=== PATIENT | female | born 1985 | race Caucasian/White ===

== ENCOUNTER 2016-06-06 10:52 | Inpatient (IN) | payer OTHER ==
[~2016-06-06] VITALS: Ht 165.1 cm; Wt 65.0 kg
[~2016-06-06 10:52] MED LIST: ACAI; CEPH500C3 PO; PREN0.01 PO; PYRI200T4 PO
[2016-06-06 10:55] VITALS: BP 120/59; PULSE 88; RESP 12; TEMP 98.4; O2SAT 97
--- NOTE | 2016-06-06 11:34 | PD ---
HPI Chief Complaint: Medical Clearance Time Seen by Provider: 11:34 Travel History International Travel<30 days: No Contact w/Intl Traveler<30days: No Traveled to known affect area: No History of Present Illness HPI 30 year-old female with history of previous CVA, left sided deficit, Crohn's disease, currently being treated for C. difficile on vancomycin, presents to the emergency department voluntarily from [facility] for psychiatric evaluation. Patient states she has been increasingly depressed and she "needs help." She states she is not currently suicidal nor does she have a suicidal plan. She went to [facility] last evening and spent the night there. She states that she did not receive any help but they sent her here today stating that she was "out of their scope." Her family is with her and is concerned about her labile moods and worsening depression. They state that some of the medication she takes causes a "change" in her. Patient states that she simply needs help. She was recently seen a [place] and told that her left shoulder is beginning to "sublux". She states they told her to get a sling but she has not yet done this. She denies any pain. No chest pain or tightness. Difficult to breathing. No fever or chills. Patient states otherwise she is well. PFSH Past Medical History Cancer: No Cardiovascular Problems: No Chemotherapy: No Cerebrovascular Accident: Yes Diabetes: No Endocrine: No Genitourinary: No Immune Disorder: No Musculoskeletal: No Neurologic: No Psychiatric: No Reproductive: No Respiratory: No Radiation Therapy: No Seizures: No Thyroid Disease: No Ulcer: No : 4 Para: 1 Past Surgical History Gynecologic Surgery: Yes (pregnancies) Social History Alcohol Use: Yes (RARE) Tobacco Use: Yes (5 CIGS A DAY) Substance Use: No Allergies-Medications (Allergen,Severity, Reaction): Coded Allergies: Morphine (Verified Allergy, Severe, 06/06/16) Reported Meds & Prescriptions Reported Meds & Active Scripts Active Reported Aspir-81 (Aspirin) 81 Mg Tabdr 81 Mg CHEW DAILY Bupropion HCl 100 Mg Tab 150 Mg PO HS Risperidone 0.5 Mg Tab 0.5 Mg PO HS Atorvastatin (Atorvastatin Calcium) 10 Mg Tab 10 Mg PO HS Dicyclomine (Dicyclomine HCl) 10 Mg Cap 10 Mg PO QID Budesonide DR (Budesonide) 3 Mg Capdr 3 Mg PO DAILY Review of Systems Except as stated in HPI: all other systems reviewed are Neg Physical Exam Narrative GENERAL: Well-nourished female patient, in no acute distress SKIN: Warm and dry. HEAD: Atraumatic. Normocephalic. EYES: No scleral icterus. No injection or drainage. ENT: No nasal bleeding or discharge. Mucous membranes pink and moist. NECK: Trachea midline. No JVD. CARDIOVASCULAR: Regular rate and rhythm. No murmur appreciated. RESPIRATORY: No accessory muscle use. Clear to auscultation. Breath sounds equal bilaterally. GASTROINTESTINAL: Abdomen soft, non-tender, nondistended. Hepatic and splenic margins not palpable. MUSCULOSKELETAL: No obvious deformities. No clubbing. No cyanosis. No edema. Left upper extremity flaccidity. Patient holds that a flexed angle with her right arm. NEUROLOGICAL: Awake and alert. No obvious cranial nerve deficits. Motor grossly within normal limits. Normal speech. Data Data Last Documented VS Vital Signs Date Time Temp Pulse Resp B/P Pulse Ox O2 Delivery O2 Flow Rate FiO2 06/06/16 19:30 76 18 121/79 99 Room Air 06/06/16 10:55 98.4 Orders Complete Blood Count With Diff (06/06/16 11:31) Basic Metabolic Panel (Bmp) (06/06/16 11:31) Urinalysis - C+S If Indicated (06/06/16 11:31) Drug Screen, Random Urine (06/06/16 11:31) Ed Urine Pregnancytest Poc (06/06/16 11:31) Alcohol (Ethanol) (06/06/16 11:31) Psych Screen (06/06/16 11:31) C Diff Toxin Pcr (06/06/16 11:31) Random Vancomycin (06/06/16 11:31) Splint Or Brace Apply/Monitor (06/06/16 11:33) Sling Cradle Arm (06/06/16 ) Labs Laboratory Tests Test 06/06/16 11:46 White Blood Count 5.8 TH/MM3 Red Blood Count 4.24 MIL/MM3 Hemoglobin 11.6 GM/DL Hematocrit 35.4 % Mean Corpuscular Volume 83.5 FL Mean Corpuscular Hemoglobin 27.3 PG Mean Corpuscular Hemoglobin 32.7 % Concent Red Cell Distribution Width 22.4 % Platelet Count 631 TH/MM3 Mean Platelet Volume 7.2 FL Neutrophils (%) (Auto) 55.3 % Lymphocytes (%) (Auto) 38.5 % Monocytes (%) (Auto) 4.0 % Eosinophils (%) (Auto) 1.1 % Basophils (%) (Auto) 1.1 % Neutrophils # (Auto) 3.2 TH/MM3 Lymphocytes # (Auto) 2.2 TH/MM3 Monocytes # (Auto) 0.2 TH/MM3 Eosinophils # (Auto) 0.1 TH/MM3 Basophils # (Auto) 0.1 TH/MM3 CBC Comment DIFF FINAL Differential Comment Urine Color YELLOW Urine Turbidity CLEAR Urine pH 7.0 Urine Specific [place] 1.019 Urine Protein NEG mg/dL Urine Glucose (UA) NEG mg/dL Urine Ketones NEG mg/dL Urine Occult Blood NEG Urine Nitrite NEG Urine Bilirubin NEG Urine Urobilinogen LESS THAN 2.0 MG/DL Urine Leukocyte Esterase TRACE Urine RBC 2 /hpf Urine WBC 1 /hpf Urine Squamous Epithelial 1 /hpf Cells Urine Mucus MOD /lpf Microscopic Urinalysis Comment CULT NOT INDICATED Sodium Level 140 MEQ/L Potassium Level 4.0 MEQ/L Chloride Level 104 MEQ/L Carbon Dioxide Level 26.2 MEQ/L Anion Gap 10 MEQ/L Blood Urea Nitrogen 15 MG/DL Creatinine 0.65 MG/DL Estimat Glomerular Filtration 108 ML/MIN Rate Random Glucose 89 MG/DL Calcium Level 8.8 MG/DL Random Vancomycin Level LESS THAN 0.8 COMMENT Urine Opiates Screen NEG Urine Barbiturates Screen NEG Urine Amphetamines Screen NEG Urine Benzodiazepines Screen NEG Urine Cocaine Screen POS Urine Cannabinoids Screen NEG Ethyl Alcohol Level LESS THAN 3 MG/DL MDM Medical Decision Making Medical Screen Exam Complete: Yes Emergency Medical Condition: Yes Medical Record Reviewed: Yes Differential Diagnosis Mood disorder versus personality disorder versus adjustment reaction disorder versus medication adverse effect Narrative Course 30 year-old female presents to the emergency department for evaluation. Patient appears without distress. Workup was initiated in triage. Once a medical bed becomes available, patient will be transferred and care assumed by that provider. Condition: Stable Yoselyn Dick Jun 06, 2016 11:34
[2016-06-06 12:13] LABS: AUTOMATED NEUTROPHIL # 3.2 TH/MM3 (1.8-7.7); BASOPHIL # 0.1 TH/MM3 (0-0.2); BASOPHIL % 1.1 % (0.0-2.0); EOSINOPHIL # 0.1 TH/MM3 (0-0.4); EOSINOPHIL % 1.1 % (0.0-4.0); HEMATOCRIT 35.4 % (35.0-46.0); HEMO FLAGS DIFF FINAL; LYMPH % 38.5 % (9.0-44.0); LYMPHOCYTE # 2.2 TH/MM3 (1.0-4.8); MEAN CELL VOLUME 83.5 FL (80.0-100.0); MEAN CORPUSCULAR HEMOGLOBIN 27.3 PG (27.0-34.0); MEAN CORPUSCULAR HGB CONC 32.7 % (32.0-36.0); NEUT % 55.3 % (16.0-70.0); PLATELET COUNT 631 TH/MM3 (150-450); RED BLOOD COUNT 4.24 MIL/MM3 (4.00-5.30); RED CELL DISTRIBUTION WIDTH 22.4 % (11.6-17.2); WHITE BLOOD COUNT 5.8 TH/MM3 (4.0-11.0)
[2016-06-06 12:20] LABS: BLOOD, URINE NEG (NEG); COMMENT (UR) CULT NOT INDICATED; CULTURE IF INDICATED CULT NOT INDICATED; GLUCOSE,URINE NEG (NEG); KETONE, URINE NEG (NEG); MUCUS URINE MOD /lpf (OCC); NITRITE,URINE NEG (NEG); SQUAMOUS EPITHELIAL CELL URINE 1 /hpf (0-5); URINE COLOR YELLOW (YELLW/STRAW)
[2016-06-06 12:21] LABS: AMPHETAMINE, URINE NEG (NEG); BARBITURATES, URINE NEG (NEG); COCAINE, URINE POS (NEG)
[2016-06-06 12:30] LABS: ANION GAP 10 MEQ/L (5-15)
[2016-06-06 12:32] LABS: BICARBONATE 26.2 MEQ/L (21.0-32.0); BLOOD UREA NITROGEN 15 MG/DL (7-18); CHLORIDE 104 MEQ/L (98-107); GLOMERULAR FILTRATION RATE 108 ML/MIN (>89); SODIUM (NA) 140 MEQ/L (136-145)
[2016-06-06] MEDS ORDERED: BUDE3CAP PO (12:41)
[2016-06-06] MEDS ORDERED: ASPI81TA81 CHEW (12:41)
[2016-06-06] MEDS ORDERED: DICY10CA12 PO (12:41)
[2016-06-06] MEDS ORDERED: RISP0.5T2 PO (12:41)
[2016-06-06] MEDS ORDERED: ATOR10TA15 PO (12:41)
[2016-06-06] MEDS ORDERED: BUPR100T4 PO (12:41)
--- NOTE | 2016-06-06 13:04 | PD ---
Physical Exam Narrative I, Dr. Marlow, have reviewed the advance practice practitioner's documentation and am in agreement, met with the patient face to face, made the diagnosis, and the medical decision making was done by me. *My assessment and Findings: Depression and suicidal ideation Pt sent here from [facility]. 30yo F with PMH of CVA with left sided weakness here with suicidal thoughts. Pt denies any medical complaints. States she is depressed and wants to hurt herself. Labs reviewed, no leukocytosis. Elevated platelet count. BMP unremarkable. Urine drug screen: Positive cocaine. UA showed trace leukocyte. Culture not indicated. Pt has no abdominal pain or urinary complaints. Pt is currently being treated for cdiff with oral vanco and flagyl. VS stable. Pt medically clear for psych evaluation. Data Data Last Documented VS Vital Signs Date Time Temp Pulse Resp B/P Pulse Ox O2 Delivery O2 Flow Rate FiO2 06/06/16 12:28 78 18 06/06/16 10:55 98.4 120/59 97 Room Air Orders Complete Blood Count With Diff (06/06/16 11:31) Basic Metabolic Panel (Bmp) (06/06/16 11:31) Urinalysis - C+S If Indicated (06/06/16 11:31) Drug Screen, Random Urine (06/06/16 11:31) Ed Urine Pregnancytest Poc (06/06/16 11:31) Alcohol (Ethanol) (06/06/16 11:31) Psych Screen (06/06/16 11:31) C Diff Toxin Pcr (06/06/16 11:31) Random Vancomycin (06/06/16 11:31) Splint Or Brace Apply/Monitor (06/06/16 11:33) Sling Cradle Arm (06/06/16 ) Labs Laboratory Tests Test 06/06/16 11:46 White Blood Count 5.8 TH/MM3 Red Blood Count 4.24 MIL/MM3 Hemoglobin 11.6 GM/DL Hematocrit 35.4 % Mean Corpuscular Volume 83.5 FL Mean Corpuscular Hemoglobin 27.3 PG Mean Corpuscular Hemoglobin 32.7 % Concent Red Cell Distribution Width 22.4 % Platelet Count 631 TH/MM3 Mean Platelet Volume 7.2 FL Neutrophils (%) (Auto) 55.3 % Lymphocytes (%) (Auto) 38.5 % Monocytes (%) (Auto) 4.0 % Eosinophils (%) (Auto) 1.1 % Basophils (%) (Auto) 1.1 % Neutrophils # (Auto) 3.2 TH/MM3 Lymphocytes # (Auto) 2.2 TH/MM3 Monocytes # (Auto) 0.2 TH/MM3 Eosinophils # (Auto) 0.1 TH/MM3 Basophils # (Auto) 0.1 TH/MM3 CBC Comment DIFF FINAL Differential Comment Urine Color YELLOW Urine Turbidity CLEAR Urine pH 7.0 Urine Specific [place] 1.019 Urine Protein NEG mg/dL Urine Glucose (UA) NEG mg/dL Urine Ketones NEG mg/dL Urine Occult Blood NEG Urine Nitrite NEG Urine Bilirubin NEG Urine Urobilinogen LESS THAN 2.0 MG/DL Urine Leukocyte Esterase TRACE Urine RBC 2 /hpf Urine WBC 1 /hpf Urine Squamous Epithelial 1 /hpf Cells Urine Mucus MOD /lpf Microscopic Urinalysis Comment CULT NOT INDICATED Sodium Level 140 MEQ/L Potassium Level 4.0 MEQ/L Chloride Level 104 MEQ/L Carbon Dioxide Level 26.2 MEQ/L Anion Gap 10 MEQ/L Blood Urea Nitrogen 15 MG/DL Creatinine 0.65 MG/DL Estimat Glomerular Filtration 108 ML/MIN Rate Random Glucose 89 MG/DL Calcium Level 8.8 MG/DL Random Vancomycin Level LESS THAN 0.8 COMMENT Urine Opiates Screen NEG Urine Barbiturates Screen NEG Urine Amphetamines Screen NEG Urine Benzodiazepines Screen NEG Urine Cocaine Screen POS Urine Cannabinoids Screen NEG Ethyl Alcohol Level LESS THAN 3 MG/DL MDM Supervised Visit with LETTY: Yes Condition: Stable MarlowMelvina segura Jun 06, 2016 13:04
[2016-06-06 15:30] VITALS: BP 119/73; PULSE 80; RESP 18; O2SAT 99
[2016-06-06 19:30] VITALS: BP 121/79; PULSE 76; RESP 18; O2SAT 99
[2016-06-06 20:56] VITALS: BP 120/68; PULSE 74; RESP 18; O2SAT 100
[2016-06-06] MEDS ORDERED: diphenhydrAMINE HCL 50 MG/ML VIAL - HS PRN IM (21:00)
[2016-06-06] MEDS ORDERED: MAGNESIUM HYDROXIDE SUSP 30 ML CUP PO PRN (21:00)
[2016-06-06] MEDS ORDERED: ACETAMINOPHEN 325 MG TAB PO PRN (21:00)
[2016-06-06] MEDS: REMOVE OLD NICOTINE PATCH T-DERMAL SCH (21:00)
[2016-06-06] MEDS ORDERED: risperiDONE 0.5 MG TAB PO SCH (21:00)
[2016-06-06] MEDS ORDERED: ALUMINUM/MAGNESIUM/SIMETH 30 ML CUP PO PRN (21:00)
[2016-06-06] MEDS: DICYCLOMINE HCL 10 MG CAP PO SCH (21:36)
[2016-06-06] MEDS: ATORVASTATIN 10 MG TAB PO SCH (21:36)
[2016-06-06 22:15] VITALS: BP 112/67; PULSE 85; RESP 18; TEMP 98.1; O2SAT 96
[2016-06-06] MEDS: diphenhydrAMINE HCL 50 MG CAP - HS PRN PO (23:01)
[2016-06-06] MEDS: hydrOXYzine HCL 50 MG TAB PO PRN (23:01)
[2016-06-07 05:43] VITALS: BP 95/52; PULSE 61; RESP 16; TEMP 97.7; O2SAT 97
[2016-06-07] MEDS: NICOTINE 21 MG/24 HR PATCH T-DERMAL SCH (09:00)
[2016-06-07] MEDS ORDERED: BUDESONIDE 3 MG PO SCH (09:00)
[2016-06-07] MEDS: ASPIRIN 81 MG CHEW TAB PO SCH (09:03)
[2016-06-07] MEDS: DICYCLOMINE HCL 10 MG CAP PO SCH ×4 (09:03→22:14)
[2016-06-07 09:14] LABS: ANION GAP 7 MEQ/L (5-15); BICARBONATE 28.1 MEQ/L (21.0-32.0); BLOOD UREA NITROGEN 13 MG/DL (7-18); CHLORIDE 105 MEQ/L (98-107); GLOMERULAR FILTRATION RATE 93 ML/MIN (>89); HDL CHOLESTEROL 54.4 MG/DL (40.0-60.0); LDL CHOLESTEROL 92 MG/DL (0-99); POTASSIUM 3.8 MEQ/L (3.5-5.1); SODIUM (NA) 140 MEQ/L (136-145)
[2016-06-07 12:27] LABS: C. DIFF EPI 027 PRESUMPTIVE NEGATIVE (NEGATIVE); C. DIFF TOXIN PCR NEGATIVE (NEGATIVE)
[2016-06-07 12:33] LABS: TRANSFERRIN IRON PROFILE 210 MG/DL (200-360)
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
[2016-06-07] MEDS ORDERED: [UNRECOGNIZED DRUG - CODE] PO (13:50)
--- NOTE | 2016-06-07 15:17 | PD.CONS ---
HPI Service [facility] Consult Requested By Psychiatric services Reason for Consult C. difficile on oral vancomycin, iron infusions, history of CVA with left-sided deficit and Crohn's disease. Primary Care Physician Antonio Colon M.D. Diagnoses: History of Present Illness This is a 30-year-old female patient with past medical history which includes Crohn's disease, CVA with left-sided deficit December 2015, iron deficiency anemia , currently on oral vancomycin for C. difficile. Patient reports she has had increasing sadness since her stroke and had thoughts of suicide and therefore her brought her to [facility]. Patient reports that [facility] Center to the hospital as she was, "out of their scope." Talking with patient she denies specific medical complaint reports she just, "needs help." Patient is currently on oral vancomycin for C. difficile she started two-week treatment course on 05/31/2016. Patient also completed Flagyl by mouth from 2016 until 05/26/2016. Patient denies diarrhea or watery stool at this time reports she has approximately 3 bowel movements a day which are soft but formed. Patient denies chest pain shortness of breath nausea vomiting fevers chills cough congestion. Patient does report since her stroke she has had iron deficiency anemia and has been getting iron infusions every week from oncology instituted in [place]. 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 difficile Past Surgical History Denies prior surgeries Reported Medications First-Vancomycin 25 Liq (Vancomycin HCl) 25 Mg/Ml Candy 5 Ml PO DAILY 14 Days starting on 05/31 take 5ml bid for one week then, take 5ml QD for one week. Aspir-81 (Aspirin) 81 Mg Tabdr 81 Mg CHEW DAILY Bupropion HCl 100 Mg Tab 150 Mg PO HS Risperidone 0.5 Mg Tab 0.5 Mg PO HS Atorvastatin (Atorvastatin Calcium) 10 Mg Tab 10 Mg PO HS Dicyclomine (Dicyclomine HCl) 10 Mg Cap 10 Mg PO QID Budesonide DR (Budesonide) 3 Mg Capdr 3 Mg PO DAILY Active Ordered Medications Current Medications Medications (Trade) Dose Ordered Sig/Nohemy Route Start Time Stop Time Status Last Admin (Atarax) 50 mg Q6H PRN PO 06/06/16 21:00 06/06/16 23:01 (Benadryl) 50 mg HS PRN PO 06/06/16 21:00 06/06/16 23:01 (Benadryl Inj) 50 mg HS PRN IM 06/06/16 21:00 (Tylenol) 650 mg Q4H PRN PO 06/06/16 21:00 (Milk Of Magnesia Liq) 30 ml DAILY PRN PO 06/06/16 21:00 (Mag-Al Plus Susp Liq) 30 ml Q6H PRN PO 06/06/16 21:00 (Habitrol 21 Mg Patch.24 Hr) 1 patch DAILY T-DERMAL 06/07/16 09:00 Miscellaneous Information 1 HS T-DERMAL 06/06/16 21:00 (Bentyl) 10 mg QID PO 06/06/16 21:00 06/07/16 13:24 (Lipitor) 10 mg HS PO 06/06/16 21:00 06/06/16 21:36 Patient Own Medication PT OWN MED: [facility]... DAILY PO 06/07/16 09:00 (Aspirin Chew) 81 mg DAILY PO 06/07/16 09:00 06/07/16 09:03 (Wellbutrin) 100 mg Q12HR PO 06/07/16 14:00 (Abilify) 5 mg DAILY PO 06/07/16 14:00 Family History Family medical history includes diabetes Social History Patient reports she rarely drinks alcohol Reports smoking approximately 5 cigarettes per day Urine tox screen positive for cocaine patient reports she had a relapse 3 days ago Physical Exam Vital Signs Vital Signs Date Time Temp Pulse Resp B/P Pulse Ox O2 Delivery O2 Flow Rate FiO2 06/07/16 05:43 97.7 61 16 95/52 97 06/06/16 22:15 98.1 85 18 112/67 96 06/06/16 20:56 74 18 120/68 100 Room Air 06/06/16 19:30 76 18 121/79 99 Room Air 06/06/16 15:30 80 18 119/73 99 Room Air Physical Exam GENERAL: This is a well-nourished, well-developed patient, in no apparent distress. SKIN: No rashes, ecchymoses or lesions. Cool and dry. HEAD: Atraumatic. Normocephalic. No temporal or scalp tenderness. EYES: Extraocular motions intact. No scleral icterus. No injection or drainage. CARDIOVASCULAR: Regular rate and rhythm without murmurs, gallops, or rubs. RESPIRATORY: Clear to auscultation. Breath sounds equal bilaterally. No wheezes , rales, or rhonchi. GASTROINTESTINAL: Abdomen soft, non-tender, nondistended. No guarding. Normoactive bowel sounds 4 MUSCULOSKELETAL: Extremities without clubbing, cyanosis, or edema. No joint tenderness, effusion, or edema noted. No calf tenderness. Negative Homans sign bilaterally. Flaccid left upper extremity. Left lower extremity 4 out of 5. Right lower extremity 5 out of 5 NEUROLOGICAL: Awake and alert. Flaccid left upper extremity. Motor and sensory grossly within normal limits. Portable 5 left lower extremity 5 out of 5 right lower extremity. Normal speech. Laboratory Laboratory Tests Test 06/07/16 06/07/16 07:58 08:47 Sodium Level 140 Potassium Level 3.8 Chloride Level 105 Carbon Dioxide Level 28.1 Anion Gap 7 Blood Urea Nitrogen 13 Creatinine 0.74 Estimat Glomerular Filtration 93 Rate Random Glucose 91 Calcium Level 8.6 Iron Level 28 Total Iron Binding Capacity 294 Percent Iron Saturation 9.5 Triglycerides Level 89 Cholesterol Level 164 LDL Cholesterol 92 HDL Cholesterol 54.4 Cholesterol/HDL Ratio 3.01 Stool C. difficile Toxin (PCR) NEGATIVE Stl C. 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 difficile. Patient reports she has had increasing sadness since her stroke and had thoughts of suicide and therefore her brought her to [facility]. Patient reports that [facility] Center to the hospital as she was, "out of their scope." Patient is currently on oral vancomycin for C. difficile she started two-week treatment course on 05/31/2016. Patient also completed Flagyl by mouth from 05/19/2016 until 05/26/2016. Patient denies diarrhea or watery stool at this time reports she has approximately 3 bowel movements a day which are soft but formed. C. difficile colitis-complete 14 day course with one additional week of oral vancomycin Retest stool for C. difficile negative Crohn's disease continue dicyclomine 10 mg 4 times a day Iron deficiency anemia hemoglobin 11.6 Iron panel reviewed iron 28 total iron binding capacity to 95% saturation 9.5 Start iron supplementation by mouth Request records from oncology [facility] in [place] History of CVA with left-sided deficit Continue aspirin and statin, LDL 92 DVT prophylaxis with SCDs Consult physical and occupational therapy Discussed plan of care with patient and RN Written by Tess Brown, acting as scribe for Dr. Hathaway on 06/07/16 at 12 :17. The documentation accurately reflects the work performed [id number] by me on at 12:17. Tess Brown Jun 07, 2016 15:17 Abisai Hathaway DO Jun 07, 2016 19:11
[2016-06-07 16:24] LABS: HEMOGLOBIN A1a 1.1 %; HEMOGLOBIN A1b 1.6 %; HEMOGLOBIN Ao 86.1 %; HEMOGLOBIN P3 5.2 %
[2016-06-07] MEDS: ARIPiprazole 5 MG TAB PO SCH (17:22)
[2016-06-07] MEDS: buPROPion HCL 100 MG TAB PO SCH ×2 (17:22→22:14)
[2016-06-07] MEDS: VANCOMYCIN 500 MG VIAL (FOR ORAL USE ONLY) PO SCH ×2 (17:22→22:15)
[2016-06-07 19:25] VITALS: BP 108/63; PULSE 89; RESP 16; TEMP 98.5; O2SAT 99
[2016-06-07] MEDS: REMOVE OLD NICOTINE PATCH T-DERMAL SCH (21:00)
[2016-06-07] MEDS: ATORVASTATIN 10 MG TAB PO SCH (22:14)
[2016-06-07] MEDS: FERROUS SULFATE 325 MG (65 MG ELEMENTAL IRON) TAB PO SCH (22:14)
[2016-06-07] MEDS: diphenhydrAMINE HCL 50 MG CAP - HS PRN PO (22:24)
[2016-06-07] MEDS: hydrOXYzine HCL 50 MG TAB PO PRN (22:24)
[2016-06-08 06:17] VITALS: BP 102/58; PULSE 85; RESP 16; TEMP 98.1; O2SAT 96
[2016-06-08] MEDS: NICOTINE 21 MG/24 HR PATCH T-DERMAL SCH (09:00)
[2016-06-08] MEDS: ASPIRIN 81 MG CHEW TAB PO SCH (09:04)
[2016-06-08] MEDS: buPROPion HCL 100 MG TAB PO SCH ×2 (09:04→20:15)
[2016-06-08] MEDS: DICYCLOMINE HCL 10 MG CAP PO SCH ×4 (09:04→20:15)
[2016-06-08] MEDS: ARIPiprazole 5 MG TAB PO SCH (09:04)
[2016-06-08] MEDS: FERROUS SULFATE 325 MG (65 MG ELEMENTAL IRON) TAB PO SCH ×2 (09:04→20:15)
[2016-06-08] MEDS: VANCOMYCIN 500 MG VIAL (FOR ORAL USE ONLY) PO SCH (09:05)
--- NOTE | 2016-06-08 13:44 | HHI.PYPN ---
Subjective Remarks Patient was seen today for psychiatric evaluation, patient is states that she feels much better today, her mood is significantly improved, /10 today, compared with yesterday 07/21. Patient denies suicidal or homicidal ideation, she denies visual and auditory hallucinations. Patient expressed an insightful motivation to continue her psychiatric care as an outpatient and being compliant with follow-ups and psychotropics. Review of Systems Other No significant changes since 06/07/2016 Objective Alert: Yes [place]: Person, Place, Date, Situation Mood: Calm Affect: Euthymic Memory Intact: Immediate, Recent, Remote Hallucinations: Other (he denies) Delusions: No Delusion Type: Other (none elicited) Suicidal: Ideation (he denies) Homicidal: Ideation (he denies) Insight/Judgement Good Vitals/IOs Vital Signs Date Time Temp Pulse Resp B/P Pulse Ox O2 Delivery O2 Flow Rate FiO2 06/08/16 06:17 98.1 85 16 102/58 96 06/06/16 20:56 Room Air Intake and Output 06/07/16 06/07/16 06/08/16 08:00 16:00 00:00 Intake Total 240 ml 360 ml 600 ml Balance 240 ml 360 ml 600 ml Assessment & Plan Problem List: (1) Major depressive disorder, recurrent severe without psychotic features Assessment & Plan: Today patient seems to be more communicative, she reports improving her mood, she denies suicidal was ideation, she denies visual and auditory hallucinations. At this point patient can continue her psychiatric care as an outpatient. No changes in psychotropics. pack worker intervention to restart to coordinate a safe discharge plan for tomorrow morning. ICD Code: F33.2 Assessment & Plan Estimated LOS: days Justification for Cont. Inpt. To coordinate safe discharge plan Yuan Galdamez MD Jun 08, 2016 13:44
[2016-06-08] MEDS ORDERED: BUPR100T4 PO (13:47)
[2016-06-08] MEDS ORDERED: ARIP1TAB11 PO (13:47)
[2016-06-08] MEDS ORDERED: VANC500I3 PO (13:47)
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
--- NOTE | 2016-06-08 14:07 | HHI.PR ---
Subjective Remarks Follow-up C. difficile, iron deficiency anemia, history of CVA with left upper extremity affected, Crohn's disease. Patient seen today resting in bed in no acute distress. Patient offers no medical complaints denies chest pain shortness of breath nausea vomiting diarrhea constipation fevers or chills. Patient does report she has between 2- 3 soft formed bowel movements daily denies watery diarrhea Objective Vitals Vital Signs Date Time Temp Pulse Resp B/P Pulse Ox O2 Delivery O2 Flow Rate FiO2 06/08/16 06:17 98.1 85 16 102/58 96 06/07/16 19:25 98.5 89 16 108/63 99 I/O 06/07/16 06/07/16 06/07/16 06/08/16 06/08/16 06/08/16 07:00 15:00 23:00 07:00 15:00 23:00 Intake Total 480 ml 360 ml 360 ml 360 ml 360 ml Balance 480 ml 360 ml 360 ml 360 ml 360 ml Intake Oral 480 ml 360 ml 360 ml 120 ml 360 ml Other 240 ml # Voids 6 Result Diagram: 06/06/16 1146 06/07/16 0758 Objective Remarks GENERAL: This is a well-nourished, well-developed patient, in no apparent distress. SKIN: No rashes, ecchymoses or lesions. Cool and dry. HEAD: Atraumatic. Normocephalic. No temporal or scalp tenderness. EYES: Extraocular motions intact. No scleral icterus. No injection or drainage. CARDIOVASCULAR: Regular rate and rhythm without murmurs, gallops, or rubs. RESPIRATORY: Clear to auscultation. Breath sounds equal bilaterally. No wheezes , rales, or rhonchi. GASTROINTESTINAL: Abdomen soft, non-tender, nondistended. No guarding. Normoactive bowel sounds 4 MUSCULOSKELETAL: Extremities without clubbing, cyanosis, or edema. No joint tenderness, effusion, or edema noted. No calf tenderness. Negative Homans sign bilaterally. Flaccid left upper extremity. Left lower extremity 4 out of 5. Right lower extremity 5 out of 5 NEUROLOGICAL: Awake and alert. Flaccid left upper extremity. Motor and sensory grossly within normal limits. 5 left lower extremity 5 out of 5 right lower extremity. Normal speech. A/P Assessment and Plan This is a 30-year-old female patient with past medical history which includes Crohn's disease, CVA with left-sided deficit December 2015, iron deficiency anemia , currently on oral vancomycin for C. difficile. Patient reports she has had increasing sadness since her stroke and had thoughts of suicide and therefore her brought her to [facility]. Patient reports that [facility] to the hospital as she was, "out of their scope." Patient is currently on oral vancomycin for C. difficile she started two-week treatment course on 05/31/2016. Patient also completed Flagyl by mouth from 05/19/2016 until 05/26/2016. Patient denies diarrhea or watery stool at this time reports she has approximately 3 bowel movements a day which are soft but formed. C. difficile colitis-patient is currently on vancomycin oral taper has 7 days left of 125 mg oral vancomycin daily recommend to complete course Retest stool for C. difficile negative Crohn's disease continue dicyclomine 10 mg 4 times a day Iron deficiency anemia hemoglobin 11.6 Iron panel reviewed iron 28 total iron binding capacity to 95% saturation 9.5 Start ferrous sulfate 325 mg twice a day Request records from [facility] in [place] History of CVA with left-sided deficit Continue aspirin and statin, LDL 92 DVT prophylaxis with SCDs Consult physical and occupational therapy Discussed plan of care with patient, RN and Dr. Hathaway Patient appears medically stable for discharge Recommend patient complete remaining 7 days of oral vancomycin taper 125 mg oral vancomycin daily Recommend patient follow-up with [place] [facility] for continued treatment of iron deficiency anemia Recommend patient follow up with PCP after discharge Tess Brown Jun 08, 2016 14:07
[2016-06-08 18:17] VITALS: BP 93/65; PULSE 95; RESP 18; TEMP 99; O2SAT 97
[2016-06-08] MEDS: hydrOXYzine HCL 50 MG TAB PO PRN (20:15)
[2016-06-08] MEDS: diphenhydrAMINE HCL 50 MG CAP - HS PRN PO (20:15)
[2016-06-08] MEDS: ATORVASTATIN 10 MG TAB PO SCH (20:15)
[2016-06-08] MEDS: REMOVE OLD NICOTINE PATCH T-DERMAL SCH (20:16)
[2016-06-08 23:17] VITALS: BP 101/63; PULSE 99; RESP 17; TEMP 98; O2SAT 95
[2016-06-09 04:17] VITALS: BP 97/60; PULSE 82; RESP 16; TEMP 98; O2SAT 97
[2016-06-09] MEDS: FERROUS SULFATE 325 MG (65 MG ELEMENTAL IRON) TAB PO SCH (08:54)
[2016-06-09] MEDS: buPROPion HCL 100 MG TAB PO SCH (08:54)
[2016-06-09] MEDS: DICYCLOMINE HCL 10 MG CAP PO SCH (08:55)
[2016-06-09] MEDS: ASPIRIN 81 MG CHEW TAB PO SCH (08:55)
[2016-06-09] MEDS: ARIPiprazole 5 MG TAB PO SCH (08:55)
[2016-06-09] MEDS: NICOTINE 21 MG/24 HR PATCH T-DERMAL SCH (08:59)
[2016-06-09] MEDS: VANCOMYCIN 500 MG VIAL (FOR ORAL USE ONLY) PO SCH (08:59)
== END 2016-06-09 13:30 | disposition home or self-care (01) | DRG 885 ==
LOC: NEPC 10:52 → NEDA 20:51 → H4EA 22:16
PROVIDERS: ADMIT Psychiatry & Neurology Psychiatry; ATTEND Psychiatry & Neurology Psychiatry
DX: F33.2 Major depressive disorder, recurrent severe without psychotic features (principal); A04.7 Enterocolitis due to Clostridium difficile; I69.354 Hemiplegia and hemiparesis following cerebral infarction affecting left non-dominant side; K50.90 Crohn's disease, unspecified, without complications; E66.3 Overweight; F12.90 Cannabis use, unspecified, uncomplicated; D50.9 Iron deficiency anemia, unspecified; F17.210 Nicotine dependence, cigarettes, uncomplicated; F14.90 Cocaine use, unspecified, uncomplicated
CPT/HCPCS: 80048; 80061; 80202; 80307; 80320; 81001; 83036; 83540; 83550; 84703; 85025; 87493; 99285; Q0163

== ENCOUNTER 2016-06-19 18:18 | Emergency (ER) | payer OTHER ==
[~2016-06-19] VITALS: Ht 162.6 cm; Wt 61.0 kg
[~2016-06-19 18:18] MED LIST changes: -ACAI; +ARIP1TAB11 PO; +ASPI81TA81 CHEW; +ATOR10TA15 PO; +BUDE3CAP PO; +BUPR100T4 PO; -CEPH500C3 PO; +DICY10CA12 PO; -PREN0.01 PO; -PYRI200T4 PO; +RISP0.5T2 PO; +VANC500I3 PO; +[UNRECOGNIZED DRUG - CODE] PO
[2016-06-19 18:52] VITALS: BP 122/74; PULSE 87; RESP 20; TEMP 97.9; O2SAT 99
--- NOTE | 2016-06-19 19:30 | PD ---
HPI Chief Complaint: Psychiatric Symptoms Time Seen by Provider: 19:30 Travel History International Travel<30 days: No Contact w/Intl Traveler<30days: No Traveled to known affect area: No History of Present Illness HPI 30-year-old female with a history of CVA with left-sided deficits, Crohn's disease, depression is brought to the emergency department under More act for suicidal ideations. The More reports states that the patient told police that she wanted to kill herself and harm her . The patient admits to suicidal ideations, states that she is very depressed. She denies any attempts to harm herself, denies any ingestion of substances in an attempt to harm herself. She denies any medical complaints. Denies chest pain, shortness of breath, lightheadedness, dizziness, nausea, vomiting, abdominal pain. She admits to drinking 2-3 glasses of wine per week. Admits to smoking cigarettes. States she did recently use cocaine 2 days ago. Denies , last menstrual period 1 week ago. No other complaints. PFSH Past Medical History Hx Anticoagulant Therapy: Yes Depression: Yes Cancer: No Cardiovascular Problems: Yes Chemotherapy: No Cerebrovascular Accident: Yes Diabetes: No Diminished Hearing: No Endocrine: No Genitourinary: No Immune Disorder: No Musculoskeletal: No Neurologic: No Psychiatric: Yes ("SMA" per pt) Reproductive: No Respiratory: No Radiation Therapy: No Seizures: Yes (last week) Thyroid Disease: No Ulcer: No Tetanus Vaccination: < 5 Years ?: Not : 4 Para: 1 Past Surgical History Gynecologic Surgery: Yes (pregnancies) Other Surgery: Yes Social History Alcohol Use: Yes (RARE) Tobacco Use: Yes (5 CIGS A DAY) Substance Use: Yes (cocaine) Allergies-Medications (Allergen,Severity, Reaction): Coded Allergies: Morphine (Verified Allergy, Severe, 06/19/16) Reported Meds & Prescriptions Reported Meds & Active Scripts Active Reported Aspir-81 (Aspirin) 81 Mg Tabdr 81 Mg CHEW DAILY Risperidone 0.5 Mg Tab 0.5 Mg PO HS Atorvastatin (Atorvastatin Calcium) 10 Mg Tab 10 Mg PO HS Review of Systems Except as stated in HPI: all other systems reviewed are Neg Physical Exam Narrative GENERAL: Well-nourished and well-developed female patient in no acute distress with obvious left-sided deficits. SKIN: Warm and dry. HEAD: Normocephalic and atraumatic. EYES: No injection, drainage, or hyphema noted. PERRLA. EOMI. ENT: No nasal drainage noted. Oropharynx is clear. NECK: Supple and the trachea is midline. CARDIOVASCULAR: Regular rate and rhythm. RESPIRATORY: Breath sounds are equal bilaterally with no accessory muscle use, wheezing, rhonchi, or crackles. GASTROINTESTINAL: Abdomen is soft, non-tender, and nondistended. MUSCULOSKELETAL: No obvious deformities, swelling, cyanosis, or ecchymosis is present throughout the upper and lower extremities. Patient has full range of motion without any signs of neurovascular compromise. NEUROLOGICAL: Awake, alert, and oriented. Normal speech. Cranial nerves are grossly intact. Data Data Last Documented VS Vital Signs Date Time Temp Pulse Resp B/P Pulse Ox O2 Delivery O2 Flow Rate FiO2 06/19/16 18:52 97.9 87 20 122/74 99 Orders Complete Blood Count With Diff (06/19/16 19:30) Comprehensive Metabolic Panel (06/19/16 19:30) Drug Screen, Random Urine (06/19/16 19:30) Alcohol (Ethanol) (06/19/16 19:30) Psych Screen (06/19/16 19:30) Labs Laboratory Tests Test 06/19/16 19:30 White Blood Count 11.2 TH/MM3 Red Blood Count 4.46 MIL/MM3 Hemoglobin 12.8 GM/DL Hematocrit 38.7 % Mean Corpuscular Volume 86.7 FL Mean Corpuscular Hemoglobin 28.7 PG Mean Corpuscular Hemoglobin 33.1 % Concent Red Cell Distribution Width 19.7 % Platelet Count 427 TH/MM3 Mean Platelet Volume 8.6 FL Neutrophils (%) (Auto) 44.7 % Lymphocytes (%) (Auto) 46.7 % Monocytes (%) (Auto) 7.1 % Eosinophils (%) (Auto) 0.3 % Basophils (%) (Auto) 1.2 % Neutrophils # (Auto) 5.0 TH/MM3 Lymphocytes # (Auto) 5.2 TH/MM3 Monocytes # (Auto) 0.8 TH/MM3 Eosinophils # (Auto) 0.0 TH/MM3 Basophils # (Auto) 0.1 TH/MM3 CBC Comment AUTO DIFF Sodium Level 142 MEQ/L Potassium Level 3.7 MEQ/L Chloride Level 103 MEQ/L Carbon Dioxide Level 31.4 MEQ/L Anion Gap 8 MEQ/L Blood Urea Nitrogen 14 MG/DL Creatinine 0.68 MG/DL Estimat Glomerular Filtration 102 ML/MIN Rate Random Glucose 97 MG/DL Calcium Level 8.6 MG/DL Total Bilirubin 0.2 MG/DL Aspartate Amino Transf 19 U/L (AST/SGOT) Alanine Aminotransferase 23 U/L (ALT/SGPT) Alkaline Phosphatase 72 U/L Total Protein 7.3 GM/DL Albumin 3.7 GM/DL Urine Opiates Screen NEG Urine Barbiturates Screen NEG Urine Amphetamines Screen NEG Urine Benzodiazepines Screen NEG Urine Cocaine Screen POS Urine Cannabinoids Screen POS Ethyl Alcohol Level LESS THAN 3 MG/DL MDM Medical Decision Making Medical Screen Exam Complete: Yes Emergency Medical Condition: Yes Differential Diagnosis Differential: Depression versus adjustment reaction versus anxiety versus PTSD versus psychosis NOS versus mood disorder NOS versus substance induced mood disorder versus ODD versus adjustment reaction versus schizophrenia versus bipolar disorder versus schizoaffective versus electrolyte abnormality Narrative Course Patient presents under a More act for suicidal ideations. Physical examination and vital signs are essentially unremarkable. Patient has no medical complaints to report. Psych screen has been ordered. The laboratory results are unremarkable for any acute abnormalities. The patient is medically cleared for psychiatric evaluation and disposition. Diagnosis Primary Impression: Depression with suicidal ideation Mary Jane Roblero Jun 19, 2016 19:30 Mary Jane Roblero Jun 19, 2016 19:30
[2016-06-19 19:52] LABS: BASOPHIL # 0.1 TH/MM3 (0-0.2); BASOPHIL % 1.2 % (0.0-2.0); EOSINOPHIL % 0.3 % (0.0-4.0); HEMATOCRIT 38.7 % (35.0-46.0); LYMPH % 46.7 % (9.0-44.0); LYMPHOCYTE # 5.2 TH/MM3 (1.0-4.8); MEAN CELL VOLUME 86.7 FL (80.0-100.0); MEAN CORPUSCULAR HEMOGLOBIN 28.7 PG (27.0-34.0); MEAN CORPUSCULAR HGB CONC 33.1 % (32.0-36.0); MONO % 7.1 % (0.0-8.0); NEUT % 44.7 % (16.0-70.0); PLATELET COUNT 427 TH/MM3 (150-450); RED BLOOD COUNT 4.46 MIL/MM3 (4.00-5.30); RED CELL DISTRIBUTION WIDTH 19.7 % (11.6-17.2); WHITE BLOOD COUNT 11.2 TH/MM3 (4.0-11.0)
[2016-06-19 19:57] LABS: HEMO FLAGS AUTO DIFF
[2016-06-19 20:07] LABS: AMPHETAMINE, URINE NEG (NEG); BARBITURATES, URINE NEG (NEG); COCAINE, URINE POS (NEG)
[2016-06-19 20:28] LABS: ALKALINE PHOSPHATASE 72 U/L (45-117); ALT (GPT) 23 U/L (10-53); ANION GAP 8 MEQ/L (5-15); AST (GOT) 19 U/L (15-37); BICARBONATE 31.4 MEQ/L (21.0-32.0); BLOOD UREA NITROGEN 14 MG/DL (7-18); CHLORIDE 103 MEQ/L (98-107); GLOMERULAR FILTRATION RATE 102 ML/MIN (>89); SODIUM (NA) 142 MEQ/L (136-145); TOTAL BILIRUBIN ADULT 0.2 MG/DL (0.2-1.0)
[2016-06-19 20:33] LABS: POTASSIUM 3.7 MEQ/L (3.5-5.1)
[2016-06-19 20:45] LABS: PLATELET ESTIMATE SMEAR HIGH (NORMAL); PLATELET MORPHOLOGY NORMAL (NORMAL); POLYS (SEG NEUTROPHILS) 45 % (16-70); SCAN/DIFF FINAL DIFF MANUAL; WBC DIFF SAMPLE 100
[2016-06-19 21:11] VITALS: BP 102/66; PULSE 101; RESP 18; O2SAT 95
[2016-06-20 02:12] VITALS: BP 87/50; PULSE 75; RESP 17; O2SAT 99
[2016-06-20 06:16] VITALS: BP 102/58; PULSE 64; RESP 18; TEMP 97.5; O2SAT 96
[2016-06-20 09:49] VITALS: BP 102/58; PULSE 64; RESP 18; O2SAT 96
--- NOTE | 2016-06-20 10:12 | PD ---
History of Present Illness Chief Complaint: Psychiatric Symptoms Time Seen by Provider: 09:30 Travel History International Travel<30 Days: No Contact w/Intl Traveler<30days: No Known affected area: No Legal Status Legal Status: More Act More Act Signed By: Carol Marshall History of Present Illness: History of Present Illness HPI 30-year-old female with history of major depressive disorder, substance use disorder who presents to ED under a More Act. As per the report the patient told police that she wanted to kill herself and harm her . The police were called by the patient's while they were involved in a verbal argument. Patient presented with [positive toxicology for cannabinoids as well as cocaine. She was monitored in [facility] with no behavioral concerns and no suicidality. As per EMR she was most recently hospitalized at [facility] Med Psych unit under the care of Dr. Galdamez for treatment of depression with suicidal ideation. She reports she has been medication compliant but has not made an appointment for outpatient psychiatric care. Patient is alert, oriented, cooperative. Speech is clear and goal directed. She does not endorse any hallucinations, delusions or paranoia. Mood is described as depressed. States " I hate my life but I don't want to kill myself or hurt anyone else". I just feel sad all the time. I have a lot of things to be happy for. We just bought a $ 160,00 dollar home. I want to live but not my life". As previously stated she reports medication compliance. She denies current suicidal ideation or plan. Endorses passive wishes. No homicidal ideation. PFSH Past Medical History Hx Anticoagulant Therapy: Yes Depression: Yes Cancer: No Cardiovascular Problems: Yes Chemotherapy: No Cerebrovascular Accident: Yes Diabetes: No Diminished Hearing: No Endocrine: No Genitourinary: No Immune Disorder: No Musculoskeletal: No Neurologic: No Psychiatric: Yes ("SMA" per pt) Reproductive: No Respiratory: No Radiation Therapy: No Seizures: Yes (last week) Thyroid Disease: No Ulcer: No Tetanus Vaccination: < 5 Years ?: Not : 4 Para: 1 Past Surgical History Gynecologic Surgery: Yes (pregnancies) Other Surgery: Yes Psychiatric History Psychiatric History Hx Psychiatric Treatment: PATIENT WAS LAST ADMITTED TO [facility] FROM 06/06/16 TO 06/09/16 FOR tx of MDD. Has had 2 previous psychiatric admissions as a teenager under the care of Dr. Olvera. Last hosp in 2004. History of Inpatient Treatment: Yes Guns or firearms in home: No Social History female. Lives with her . Born in [place]. Completed 8th grade. Mother of 7 children who are in foster care system. Unemployed due to medical problems Hx Alcohol Use: Yes (RARE) Hx Tobacco Use: Yes (5 CIGS A DAY) Hx Substance Use: Yes Substance Use Type: Crack Hx of Substance Use Treatment: Yes Family Psychiatric History none reported Allergies-Medications (Allergen,Severity, Reaction): Coded Allergies: Morphine (Verified Allergy, Severe, 06/19/16) Reported Meds & Prescriptions Reported Meds & Active Scripts Active Reported Aspir-81 (Aspirin) 81 Mg Tabdr 81 Mg CHEW DAILY Risperidone 0.5 Mg Tab 0.5 Mg PO HS Atorvastatin (Atorvastatin Calcium) 10 Mg Tab 10 Mg PO HS Review of Systems Constitutional: DENIES: Diaphoretic episodes, Fatigue, Fever, Weight gain, Weight loss, Chills, Dizziness, Change in appetite, Night Sweats Endocrine: DENIES: Abnorml menstrual pattern, Heat/cold intolerance, Polydipsia , Polyuria, Polyphagia Eyes: DENIES: Blurred vision, Diplopia, Eye inflammation, Eye pain, Vision loss , Photosensitivity, Double Vision Ears, nose, mouth, throat: DENIES: Tinnitus, Hearing loss, Vertigo, Nasal discharge, Oral lesions, Throat pain, Hoarseness, Ear Pain, Running Nose, Epistaxis, Sinus Pain, Toothache, Odynophagia Respiratory: DENIES: Apneas, Cough, Snoring, Wheezing, Hemoptysis, Sputum production, Shortness of breath Cardiovascular: DENIES: Chest pain, Palpitations, Syncope, Dyspnea on Exertion , PND, Lower Extremity Edema, Orthopnea, Claudication Gastrointestinal: DENIES: Abdominal pain, Black stools, Bloody stools, Constipation, Diarrhea, Nausea, Vomiting, Difficulty Swallowing, Anorexia Genitourinary: DENIES: Abnormal vaginal bleeding, Dysmenorrhea, Dyspareunia, Sexual dysfunction, Urinary frequency, Urinary incontinence, Urgency, Hematuria , Dysuria, Nocturia, Vaginal discharge Musculoskeletal: COMPLAINS OF: Muscle aches Integumentary: DENIES: Abnormal pigmentation, Pruritus, Rash, Nail changes, Breast masses, Breast skin changes, Nipple discharge Hematologic/lymphatic: DENIES: Bruising, Lymphadenopathy Immunologic/allergic: DENIES: Eczema, Urticaria Neurologic: COMPLAINS OF: Abnormal gait, Localized weakness, Poor Balance Psychiatric: COMPLAINS OF: Depression Exam Alert: Yes [place]: Person (ox4) Mood: Depressed Affect: Euthymic Speech: Clear, Logical Eye Contact: Normal Memory Intact: Comment (no impairment) Hallucinations: Other (negative) Delusions: No Suicidal: Ideation (deneis) Homicidal: Ideation (deneis) Insight/Judgement poor. poor MDM Medical Decision Making Medical Record Reviewed: Yes Assessment/Plan 30 year old female with history of depression as well as substance use who presents to ED under a BA for suicidal ideation. Patient endorses persistent feelings of sadness and depression with stressors which include multiple health sequelae of a recent stroke, marital stressors, inability to do the things she would like to do. She denies current suicidal or homicidal ideation. At this time she does not meet criteria for inpatient psychiatric treatment. She will benefit from continued antidepressant therapy as well as counseling to help her develop positive coping skills. She also needs to address her continued use of substances. The BA will be lifted. Discharge to home. Teaching re imp of continuing current medication medication, abstinence from substance use. Orders Complete Blood Count With Diff (06/19/16 19:30) Comprehensive Metabolic Panel (06/19/16 19:30) Drug Screen, Random Urine (06/19/16 19:30) Alcohol (Ethanol) (06/19/16 19:30) Psych Screen (06/19/16 19:30) Diet Regular Basic (06/20/16 Breakfast) Diet Regular Basic (06/20/16 Lunch) Results Vital Signs Date Time Temp Pulse Resp B/P Pulse Ox O2 Delivery O2 Flow Rate FiO2 06/20/16 09:49 64 18 102/58 96 Room Air 06/20/16 06:16 97.5 64 18 102/58 96 Room Air 06/20/16 02:12 75 17 87/50 99 Room Air 06/19/16 21:11 101 18 102/66 95 Room Air 06/19/16 18:52 97.9 87 20 122/74 99 Laboratory Tests Test 06/19/16 19:30 White Blood Count 11.2 Red Blood Count 4.46 Hemoglobin 12.8 Hematocrit 38.7 Mean Corpuscular Volume 86.7 Mean Corpuscular Hemoglobin 28.7 Mean Corpuscular Hemoglobin 33.1 Concent Red Cell Distribution Width 19.7 Platelet Count 427 Mean Platelet Volume 8.6 Neutrophils (%) (Auto) 44.7 Lymphocytes (%) (Auto) 46.7 Monocytes (%) (Auto) 7.1 Eosinophils (%) (Auto) 0.3 Basophils (%) (Auto) 1.2 Neutrophils # (Auto) 5.0 Lymphocytes # (Auto) 5.2 Monocytes # (Auto) 0.8 Eosinophils # (Auto) 0.0 Basophils # (Auto) 0.1 CBC Comment AUTO DIFF Differential Total Cells 100 Counted Neutrophils % (Manual) 45 Lymphocytes % 50 Monocytes % 5 Neutrophils # (Manual) 5.0 Differential Comment FINAL DIFF MANUAL Platelet Estimate HIGH Platelet Morphology Comment NORMAL Red Cell Morphology Comment NORMAL Sodium Level 142 Potassium Level 3.7 Chloride Level 103 Carbon Dioxide Level 31.4 Anion Gap 8 Blood Urea Nitrogen 14 Creatinine 0.68 Estimat Glomerular Filtration 102 Rate Random Glucose 97 Calcium Level 8.6 Total Bilirubin 0.2 Aspartate Amino Transf 19 (AST/SGOT) Alanine Aminotransferase 23 (ALT/SGPT) Alkaline Phosphatase 72 Total Protein 7.3 Albumin 3.7 Urine Opiates Screen NEG Urine Barbiturates Screen NEG Urine Amphetamines Screen NEG Urine Benzodiazepines Screen NEG Urine Cocaine Screen POS Urine Cannabinoids Screen POS Ethyl Alcohol Level LESS THAN 3 Diagnosis Primary Impression: Major depressive disorder, recurrent severe without psychotic features Additional Impressions: substance Induced mood disorder substancne abuse Ruled Out: Depression with suicidal ideation Psychiatrically Cleared: Yes Med/ Other Pt Specific Info: No Change to Meds Disposition: 01 DISCHARGE HOME Condition: Stable Problem Qualifiers Elizabeth Chris Jun 20, 2016 10:12
== END 2016-06-20 13:04 | disposition home or self-care (01) ==
LOC: NEPJ 18:18
DX: F33.2 Major depressive disorder, recurrent severe without psychotic features (principal); F19.94 Other psychoactive substance use, unspecified with psychoactive substance-induced mood disorder; F19.10 Other psychoactive substance abuse, uncomplicated; I69.30 Unspecified sequelae of cerebral infarction; Z79.01 Long term (current) use of anticoagulants; Z72.0 Tobacco use; Z86.59 Personal history of other mental and behavioral disorders; Z86.79 Personal history of other diseases of the circulatory system; Z86.69 Personal history of other diseases of the nervous system and sense organs; Z87.19 Personal history of other diseases of the digestive system
CPT/HCPCS: 80053; 80307; 80320; 85007; 85027; 99283

== ENCOUNTER 2018-01-26 10:55 | Observation (INO) ==
[2018-01-26] MEDS ORDERED: Bisacodyl 10 MG Supp RECTAL PRN (17:00)
[2018-01-26] MEDS ORDERED: Acetaminophen 325 MG Tablet PO PRN (17:00)
[2018-01-26] MEDS ORDERED: Temazepam 15 MG Capsule PO PRN (17:00)
--- NOTE | 2018-01-26 17:39 | P.HP ---
History of Present Illness Primary Care Physician: Antonio Colon MD Chief Complaint: Abdominal pain History of Present Illness: 32-year-old female with known history of CVA, Crohn's disease who presented to the hospital because of abdominal pain. Patient states that initially her discomfort started over 10 days ago and she came to the emergency department for evaluation. Patient was diagnosed with urinary tract infection and was prescribed antibiotics, however patient did not take the antibiotics as prescribed because she went out of town. Her culture on that ER visit was 10, 000 colonies without any signs of infection. Patient states that over the last 3 days she has been having progressive crescendo type pain in her abdomen which can get up to a 10/10 on a pain scale where she cannot even ambulate. Patient states that she has not had any nausea or vomiting. However has had diarrhea with blood in her stool. She is followed by Dr. Montiel in the outpatient setting for her Crohn's disease, she is scheduled with him to have colonoscopy on Sunday. Patient states that she was taken off all of her Crohn's medications because she was . Now that she is no longer she has had worsening abdominal pain and Crohn's symptoms. Patient had workup done emergency department today and found to have urinary tract infection as well as diffuse colitis which would be consistent with the patient's history of Crohn's disease. Is recommended by the ER physician that the patient be observed in the hospital for further evaluation and management. Patient denies any fever but states that she was experiencing chills. Patient does admit to abdominal pain, diarrhea, hematochezia. Patient very concerned about her pain control. When I discussed with her that she was not experiencing any nausea or vomiting I recommended oral pain medication, however, patient indicates that she has an IV for pain medicine. - Diagnosis (1) Urinary tract infection (2) Exacerbation of Crohn's disease (3) Abdominal pain Inpatient Certification: I certify that the inpatient services were ordered in accordance with Medicare regulations governing the order. This includes certification that hospital inpatient services are reasonable and necessary and in the case of services not specified as inpatient-only under 42 CFR 419.22(n), that they are appropriately provided as inpatient services in accordance to with the 2-midnight benchmark under 43 CFR 412.3(e) Review of Systems All other systems reviewed negative except as stated in HPI Constitutional: Reports chills Gastrointestinal: Reports abdominal pain, Reports bright, red blood in stools, Reports loose stools PMFSH - History History Provided By: Patient - Medical History Medical History: Medical History (Last Updated 01/26/18 @ 11:18 by Brenda Flores) History of CVA with residual deficit (Acute) Hx of Crohn's disease (Acute) Depression (Acute) Bipolar affective disorder (Acute) - Surgical History Surgical History: Surgical History (Last Updated 01/26/18 @ 11:18 by Brenda Flores) No history of previous surgery (Acute) - Family History Family History: Family History (Last Updated 01/26/18 @ 17:33 by PAUL Fisher) Other No pertinent family history - Tobacco History Smoking Status: Former smoker - Alcohol History How Often Do You Have a Drink Containing Alcohol: Never - Substance Use History Substance History: No History of Abuse, Past History - Substance Use Type Crack/Cocaine Route Used: Inhalation Medications and Allergies Active Medications: Active Medications Acetaminophen (Tylenol) 650 mg PO Q4H PRN PRN Reason: Temp > 100.4 Al Hydroxide/Mg Hydroxide (Milk Of Magnesia Liq) 30 ml PO Q12H PRN PRN Reason: Mild Constipation Bisacodyl (Dulcolax Supp) 10 mg RECTAL DAILY PRN PRN Reason: SEVERE CONSITIPATION Levofloxacin/Dextrose (Levaquin 500 Mg Premix Inj) 500 mg in 100 mls @ 100 mls/ hr IV.SIG Q24H [facility] Metronidazole/Sodium Chloride (Flagyl 500 Mg Inj) 100 mls @ 100 mls/hr IV.SIG Q8H [facility] Potassium Chloride 10 meq/ (Sodium Chloride) 1,005 mls @ 100 mls/hr IV.CONT .Q10H3M [facility] Lactulose (Lactulose Liq) 30 ml PO DAILY PRN PRN Reason: SEVERE CONSITIPATION Ondansetron HCl (Zofran Inj) 4 mg IV.PUSH Q6H PRN PRN Reason: NAUSEA OR VOMITING Oxycodone/Acetaminophen (Percocet 5/325 Mg) 1 tab PO Q6H PRN PRN Reason: PAIN SCALE 1 TO 5 Oxycodone/Acetaminophen (Percocet 7.5/325 Mg) 1 tab PO Q6H PRN PRN Reason: PAIN SCALE 6 TO 10 Pantoprazole Sodium (Protonix) 40 mg PO DAILY [facility] Prednisone (Deltasone) 40 mg PO DAILY [facility] Senna/Docusate Sodium (Erum-Colace) 1 tab PO BID [facility] Sennosides (Senokot) 17.2 mg PO Q12H PRN PRN Reason: Moderate Constipation Temazepam (Restoril) 15 mg PO HS PRN PRN Reason: INSOMNIA Allergies Allergy/AdvReac Type Severity Reaction Status Date / Time morphine Allergy Severe Joint Pain Verified 01/26/18 11:08 Home Medications Medication Instructions Recorded Confirmed Type aripiprazole [Abilify] 2 mg PO DAILY 01/13/18 01/26/18 History carbamazepine [Tegretol] 200 mg PO BID 01/13/18 01/26/18 History levetiracetam [Keppra] 1,000 mg PO TID 01/13/18 01/26/18 History Exam Narrative: GENERAL: Well-developed, well-nourished, in no acute distress. alert and orientated HEENT: Head is normocephalic without any lesions or masses noted. Facial features are symmetric. Eyes: Pupils equal round reactive to light. Extraocular muscles are intact. Conjunctivae were clear. Oropharyngeal: Pharynx without any erythema edema. Tongue is midline without deviation. Buccal mucosa is moist without any masses or lesions NECK: Supple without any masses. Trachea midline no deviation. No JVD, no bruits are appreciated CARDIAC: Regular rhythm, regular rate. S1/S2 are heard. No murmurs gallops or rubs. LUNGS: Clear to auscultation bilaterally. No wheeze, rhonchi or rales. No use of accessory muscles on inspiration or expiration. ABDOMEN: Soft, nontender. Nondistended. Bowel sounds heard in all 4 quadrants. No organomegaly or masses. Negative rebound, negative guarding EXTREMITIES: No edema, pulses are equal bilaterally. No cyanosis or clubbing NEUROLOGY: Mood and affect appear appropriate. Cranial nerves II through XII grossly intact. Muscle strength 5/5 in upper and lower extremities bilaterally. Deep tendon reflexes are 2+ in upper and lower extremities bilaterally. Caprini VTE Risk Assessment Caprini VTE Risk Assessment: No/Low Risk (score <= 1) Caprini Risk Assessment Model: Point Value = 1 Point Value = 2 Point Value = 3 Point Value = 5 Age 41-60 Minor surgery BMI > 25 kg/m2 Swollen legs Varicose veins or History of unexplained or recurrent spontaneous Oral contraceptives or hormone replacement Sepsis (< 1 month) Serious lung disease, including pneumonia (< 1 month) Abnormal pulmonary function Acute myocardial infarction Congestive heart failure (< 1 month) History of inflammatory bowel disease Medical patient at bed rest Age 61-74 Arthroscopic surgery Major open surgery (> 45 min) Laparoscopic surgery (> 45 min) Malignancy Confined to bed (> 72 hours) Immobilizing plaster cast Central venous access Age >= 75 History of VTE Family history of VTE Factor V Leiden Prothrombin [id number] Lupus anticoagulant Anticardiolipin antibodies Elevated serum homocysteine Heparin-induced thrombocytopenia Other congenital or acquired thrombophilia Stroke (< 1 month) Elective arthroplasty Hip, pelvis, or leg fracture Acute spinal cord injury (< 1 month) Prophylaxis Regimen: Total Risk Factor Score Risk Level Prophylaxis Regimen 0-1 Low Early ambulation 2 Moderate Order ONE of the following: *Sequential Compression Device (SCD) *Heparin 5000 units SQ BID 3-4 Higher Order ONE of the following medications: *Heparin 5000 units SQ TID *Enoxaparin/Lovenox 40 mg SQ daily (WT < 150 kg, CrCl > 30 mL/min) *Enoxaparin/Lovenox 30 mg SQ daily (WT < 150 kg, CrCl > 10-29 mL/min) *Enoxaparin/Lovenox 30 mg SQ BID (WT < 150 kg, CrCl > 30 mL/min) AND/OR *Sequential Compression Device (SCD) 5 or more Highest Order ONE of the following medications: *Heparin 5000 units SQ TID (Preferred with Epidurals) *Enoxaparin/Lovenox 40 mg SQ daily (WT < 150 kg, CrCl > 30 mL/min) *Enoxaparin/Lovenox 30 mg SQ daily (WT < 150 kg, CrCl > 10-29 mL/min) *Enoxaparin/Lovenox 30 mg SQ BID (WT < 150 kg, CrCl > 30 mL/min) AND *Sequential Compression Device (SCD) Assessment and Plan - Assessment (1) Urinary tract infection Code(s): N39.0 - Urinary tract infection, site not specified Status: Acute (2) Exacerbation of Crohn's disease Code(s): K50.90 - Crohn's disease, unspecified, without complications Status: Acute (3) Abdominal pain Code(s): R10.9 - Unspecified abdominal pain Status: Acute - Plan Acute Crohn's exacerbation -Patient indicates that she has been having diarrhea with hematochezia -CT scan does show diffuse colitis which would be consistent with the patient's Crohn disease -Start prednisone 40 mg p.o. daily -We will start Levaquin and Flagyl -Percocet for pain control -Continue monitor H&H -Patient does have scheduled colonoscopy on Sunday with her personal motorboat operator Dr. Montiel. Hopefully patient can be dispositioned home prior to that so she can continue follow-up with her own motorboat operator for continuity care Urinary tract infection -Previous culture that was done 10 days ago only indicated 10,000 colonies -Patient was started on Levaquin -Continue monitor culture for appropriate antibiotics Hypokalemia -Secondary to diarrhea -Continue to replete as needed History of CVA, bipolar disorder -Continue home medications DVT prevention -Sequential compression devices, avoid chemical prophylaxis secondary to patient indicated she has hematochezia
[2018-01-26] MEDS ORDERED: Levofloxacin 500 mg Premix Inj 500 MG/100 ML PIGGYBACK IV.SIG SCH (18:00)
[2018-01-26] MEDS: levETIRAcetam 500 MG Tablet PO SCH (18:43)
[2018-01-26] MEDS: predniSONE 20 MG Tablet PO SCH (18:44)
[2018-01-26] MEDS: Senna/Docusate Sodium 8.6/50 MG Tablet PO SCH (21:26)
[2018-01-26] MEDS: carBAMazepine 200 MG Tablet PO SCH (21:28)
[2018-01-26] MEDS: Potassium Chloride Inj 10 MEQ in Sod Chloride 0.9% Inj 1,000 ML IV.CONT SCH (21:33)
[2018-01-27] MEDS: Potassium Chloride Inj 10 MEQ in Sod Chloride 0.9% Inj 1,000 ML IV.CONT SCH (05:23)
[2018-01-27] MEDS: carBAMazepine 200 MG Tablet PO SCH (07:59)
[2018-01-27] MEDS: predniSONE 20 MG Tablet PO SCH (07:59)
[2018-01-27] MEDS: levETIRAcetam 500 MG Tablet PO SCH ×2 (07:59→12:36)
[2018-01-27] MEDS: Senna/Docusate Sodium 8.6/50 MG Tablet PO SCH (08:00)
[2018-01-27] MEDS ORDERED: ARIPiprazole 2 MG Tablet PO SCH (09:00)
--- NOTE | 2018-01-27 09:33 | P.PN ---
Subjective Interval history: 32-year-old female who is seen and examined today for follow-up on Crohn's exacerbation, possible urinary tract infection. She states that she is doing much better. Still having loose stools with blood in it. However she states that his are normal. Patient is doing much better and is anticipating being discharged today so she continue follow-up with her die out worker for colonoscopy on Sunday. Vital signs continue to be stable. T-max 101.5 Physical Exam Vital signs: Vital Signs 01/26/18 20:00 01/27/18 00:00 Temperature 101.5 F H 98.7 F Pulse Rate 117 H 91 H Respiratory Rate 20 20 Blood Pressure 108/66 105/64 Pulse Oximetry 94 L 93 L Intake & Output 01/26/18 01/27/18 01/27/18 18:59 06:59 18:59 Intake Total 1540 / 1540 Balance 1540 / 1540 Weight 66.2 kg Intake: IV 1300 / 1300 KCl Inj 10 MEQ In NS Inj 1,000 1000 / 1000 ML @ 100 mls/hr IV.CONT .Q10H3M [facility] Rx#:[id number] Levaquin 500 mg Premix Inj 500 100 / 100 mg In 100 ml @ 100 mls/hr IV. SIG Q24H [facility] Rx#:[id number] Flagyl 500 MG Inj 100 ML @ 100 200 / 200 mls/hr IV.SIG Q8H [facility] Rx#: [id number] Oral 240 / 240 Other: # Voids 3 # Bowel Movements 1 Narrative: GENERAL: Well-developed, well-nourished, in no acute distress. alert and orientated HEENT: Head is normocephalic without any lesions or masses noted. Facial features are symmetric. Eyes: Extraocular muscles are intact. Conjunctivae were clear. NECK: Supple without any masses. Trachea midline no deviation. No JVD, CARDIAC: Regular rhythm, regular rate. S1/S2 are heard. No murmurs gallops or rubs. LUNGS: Clear to auscultation bilaterally. No wheeze, rhonchi or rales. No use of accessory muscles on inspiration or expiration. ABDOMEN: Soft, nontender. Nondistended. Bowel sounds heard in all 4 quadrants. No organomegaly or masses. Negative rebound, negative guarding EXTREMITIES: No edema, pulses are equal bilaterally. No cyanosis or clubbing NEUROLOGY: Mood and affect appear appropriate. Cranial nerves II through XII grossly intact. Moving all extremities, speech is clear Results - Labs CBC & Chem 7: 01/27/18 10:00 01/27/18 10:00 Assessment and Plan - Assessment (1) Urinary tract infection Code(s): N39.0 - Urinary tract infection, site not specified Status: Acute (2) Exacerbation of Crohn's disease Code(s): K50.90 - Crohn's disease, unspecified, without complications Status: Acute (3) Abdominal pain Code(s): R10.9 - Unspecified abdominal pain Status: Acute - Plan Acute Crohn's exacerbation -Patient indicates that she has been having diarrhea with hematochezia -CT scan does show diffuse colitis which would be consistent with the patient's Crohn disease -Continue prednisone 40 mg p.o. daily -Continue Levaquin and Flagyl -Percocet for pain control -Continue monitor H&H -Patient does have scheduled colonoscopy on Sunday with her personal die out worker Dr. Montiel. Hopefully patient can be dispositioned home prior to that so she can continue follow-up with her own die out worker for continuity care Urinary tract infection -Previous culture that was done 10 days ago only indicated 10,000 colonies, and culture from 3 days ago shows 50-100,000 mixed contamination. -Continue Levaquin -Continue monitor culture for appropriate antibiotics Hypokalemia -Secondary to diarrhea -Continue to replete as needed History of CVA, bipolar disorder -Continue home medications DVT prevention -Sequential compression devices, avoid chemical prophylaxis secondary to patient indicated she has hematochezia Discharge Planning: Discharge home in stable condition Activity: Ad maryan. Diet: Regular diet Medication per medication reconciliation Follow-up with primary medical doctor in 1 week
[2018-01-27 09:40] VITALS: RESP 18; O2SAT 98
[2018-01-27 10:39] LABS: Baso % (Auto) 0.5 % (0.0-2.0); Eos % (Auto) 0.1 % (0.0-4.0); Hematocrit 32.5 % (35.0-46.0); Hemoglobin 10.7 gm/dL (11.6-15.3); Lymph # (Auto) 1.1 th/mm3 (1.0-4.8); Lymph % (Auto) 11.9 % (9.0-44.0); Mean Corpuscular HGB Conc 32.8 % (32.0-36.0); Mean Corpuscular Hemoglobin 32.6 pg (27.0-34.0); Mean Corpuscular Volume 99.3 fL (80.0-100.0); Mean Platelet Volume 7.7 fL (7.0-11.0); Mono # (Auto) 0.5 th/mm3 (0.0-0.9); Mono % (Auto) 5.7 % (0.0-8.0); Neut # (Auto) 7.3 th/mm3 (1.8-7.7); Neut % (Auto) 81.8 % (16.0-70.0); Red Blood Count 3.27 mil/mm3 (4.00-5.30); Red Cell Distribution Width 11.8 % (11.6-17.2); White Blood Count 8.9 th/mm3 (4.0-11.0)
[2018-01-27 10:45] LABS: Platelet Count 557 th/mm3 (150-450)
[2018-01-27 10:46] LABS: Chloride 108 meq/L (98-107); Potassium 3.1 meq/L (3.5-5.1); Sodium 142 meq/L (136-145)
[2018-01-27 10:55] LABS: Anion Gap 11 meq/L (5-15); Blood Urea Nitrogen 5 mg/dL (7-18); Calcium 7.4 mg/dL (8.5-10.1); Carbon Dioxide 23.4 meq/L (21.0-32.0); Glomerular Filtration Rate Greater Than 89 mL/min (>89); Glucose,Random 125 mg/dL (74-106)
[2018-01-27] MEDS ORDERED: Potassium Chloride 25 MEQ Effervescent Tablet PO ONE (11:00)
[2018-01-27 11:11] LABS: Total Protein 5.4 g/dL (6.4-8.2)
[2018-01-27 12:21] VITALS: BP 104/55; PULSE 87; TEMP 96.6
== END 2018-01-27 17:45 | disposition home or self-care (01) ==
LOC: PHEDA 10:55 → PHEDDLT 10:55 → PH3 18:44
PROVIDERS: ADMIT Family Medicine; ATTEND Family Medicine